=== PATIENT | male | born 1970 | race Caucasian/White ===

== ENCOUNTER 2019-04-22 12:24 | Emergency (ER) | payer OTHER ==
[~2019-04-22] VITALS: Ht 180.3 cm; Wt 79.5 kg
[2019-04-22 12:57] VITALS: Ht 180.3 cm; Wt 79.5 kg
[2019-04-22] MEDS ORDERED: VOLTAREN75 MG PO (15:55)
[2019-04-22] MEDS ORDERED: ULTRAM50 MG PO (15:55)
[2019-04-22 16:32] VITALS: BP 112/70
== END 2019-04-22 16:43 | disposition home or self-care (01) ==
LOC: D.ER 12:24
DX: S82.61XA Displaced fracture of lateral malleolus of right fibula, initial encounter for closed fracture (principal); X58.XXXA Exposure to other specified factors, initial encounter; Y93.9 Activity, unspecified; Y92.9 Unspecified place or not applicable; S99.911A Unspecified injury of right ankle, initial encounter

== ENCOUNTER → 2019-05-21 13:07 | Outpatient (CLI) | payer OTHER ==
[2019-04-22 12:57] VITALS: BMI 24.4
[~2019-05-21 13:07] MED LIST: ULTRAM50 MG PO; VOLTAREN75 MG PO
== END | disposition home or self-care (01) ==
LOC: D.RAD 13:07
PROVIDERS: ATTEND Orthopaedic Surgery
DX: S82.91XA Unspecified fracture of right lower leg, initial encounter for closed fracture (principal)